=== PATIENT | male | born 1955 | race African-American/Black ===

== ENCOUNTER → 2019-09-25 | Emergency (ER) | payer MEDICAID, OTHER ==
[~2019-09-25] VITALS: Ht 188 cm; Wt 127.0 kg
[2019-09-26 00:34] VITALS: BP 0/0
== END | disposition expired ==
LOC: EDBD 22:48 → ER 22:50
DX: I46.9 Cardiac arrest, cause unspecified (principal); I50.9 Heart failure, unspecified; I49.01 Ventricular fibrillation
CPT/HCPCS: 31500; 99291